=== PATIENT | female | born 1955 | race African-American/Black ===

== ENCOUNTER 2023-08-24 09:51 | Day surgery (SDC) | payer MEDICARE ==
[2023-08-16 13:30] VITALS: BMI 28.1
[2023-08-24 10:24] VITALS: TEMP 97.1
[2023-08-24 11:27] VITALS: PULSE 76; RESP 18
[2023-08-24 12:28] VITALS: BP 122/68
== END 2023-08-24 12:28 | disposition home or self-care (01) ==
LOC: FASU-ENDO 09:51
PROVIDERS: ATTEND Internal Medicine Gastroenterology
PROC: 0DBP8ZX Excision of Rectum, Via Natural or Artificial Opening Endoscopic, Diagnostic (ICD-10-PCS; principal; 2023-08-24 10:56)
DX: Z12.11 Encounter for screening for malignant neoplasm of colon (principal); K63.5 Polyp of colon; K64.1 Second degree hemorrhoids
CPT/HCPCS: 82962; 88305-TC